=== PATIENT | female | born 1985 | race Hispanic/Latino ===

== ENCOUNTER 2017-09-12 07:26 | Emergency (ER) | payer OTHER ==
[2017-09-12 07:29] VITALS: BP 129/90; PULSE 88; RESP 21; TEMP 98.6; O2SAT 98
[2017-09-12] MEDS ORDERED: Naproxen 500 MG TAB PO ONE ×2 (07:59→08:26)
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
[2017-09-12] MEDS ORDERED: Lidocaine 2% Inj (20ml) IJ ONE (09:54)
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
== END 2017-09-12 10:47 | disposition home or self-care (01) ==
LOC: H.ER 07:26
DX: S80.211A Abrasion, right knee, initial encounter (principal); S09.93XA Unspecified injury of face, initial encounter; V03.10XA Pedestrian on foot injured in collision with car, pick-up truck or van in traffic accident, initial encounter; Y92.410 Unspecified street and highway as the place of occurrence of the external cause; J34.2 Deviated nasal septum; Z88.1 Allergy status to other antibiotic agents